=== PATIENT | male | born 1990 | race Caucasian/White ===

== ENCOUNTER 2016-11-17 12:23 | Emergency (ER) | payer BC, OTHER ==
[~2016-11-17] VITALS: Ht 170.2 cm; Wt 74.8 kg
[2016-11-17] MEDS ORDERED: IBUP200C PO (12:29)
[2016-11-17] MEDS ORDERED: CYCL10TA PO (13:40)
[2016-11-17 13:53] VITALS: BP 143/88
== END 2016-11-17 13:54 | disposition home or self-care (01) ==
LOC: M ED 13:30
DX: S39.012A Strain of muscle, fascia and tendon of lower back, initial encounter (principal); X50.0XXA Overexertion from strenuous movement or load, initial encounter; Y92.89 Other specified places as the place of occurrence of the external cause; Y93.B9 Activity, other involving muscle strengthening exercises; Y99.0 Civilian activity done for income or pay

== ENCOUNTER → 2018-08-27 | Outpatient (REF) | payer OTHER ==
[~2018-08-27] MED LIST: CYCL10TA PO; IBUP200C25 PO
[2018-08-27 19:54] LABS: INFLUENZA A AMPLIFICATION POSITIVE (NEGATIVE); INFLUENZA B AMPLIFICATION NEGATIVE (NEGATIVE)
== END ==
LOC: M LAB REF 10:22
PROVIDERS: ATTEND Physician Assistant
DX: J11.1 Influenza due to unidentified influenza virus with other respiratory manifestations (principal)

== ENCOUNTER 2018-12-13 16:40 | Emergency (ER) | payer OTHER, BC ==
[~2018-12-13] VITALS: Ht 172.7 cm; Wt 77.6 kg
[2018-12-13 19:32] VITALS: BP 138/78
== END 2018-12-13 19:43 | disposition home or self-care (01) ==
LOC: M ED 19:38
DX: S50.812A Abrasion of left forearm, initial encounter (principal); S13.4XXA Sprain of ligaments of cervical spine, initial encounter; V43.92XA Unspecified car occupant injured in collision with other type car in traffic accident, initial encounter; Y92.9 Unspecified place or not applicable; Y93.9 Activity, unspecified; Y99.9 Unspecified external cause status

== ENCOUNTER 2024-10-13 17:37 | Emergency (ER) | payer BC, OTHER ==
[~2024-10-13] VITALS: Ht 170.2 cm; Wt 80.4 kg
[~2024-10-13 17:37] MED LIST changes: +CYCL-707 PO; -CYCL10TA PO
[2024-10-13 17:55] VITALS: TEMP 98
[2024-10-13 18:06] LABS: BASO # 0.1 10^3/uL (0.0-0.2); BASO % 1.3 % (0.0-1.0); EOS # 0.2 10^3/uL (0.0-0.5); EOS % 3.8 % (0.0-3.0); HEMOGLOBIN 14.4 g/dl (13.5-17.5); LYMPH # 2.2 10^3/uL (1.5-5.0); LYMPH % 33.9 % (24.0-44.0); MEAN CORPUSCULAR HEMOGLOBIN 29.1 pg (27.0-33.0); MEAN CORPUSCULAR HGB CONC 32.7 g/dl (32.0-36.5); MEAN CORPUSCULAR VOLUME 89.1 fl (80.0-96.0); MONO # 0.4 10^3/uL (0.0-0.8); MONO % 6.6 % (2.0-8.0); NEUTROPHILS # 3.5 10^3/uL (1.5-8.5); NEUTROPHILS % 54.2 % (36.0-66.0); PLATELET COUNT, AUTOMATED 279 10^3/uL (150-450); RED BLOOD COUNT 4.94 10^6/uL (4.30-6.10); WHITE BLOOD COUNT 6.4 10^3/uL (4.0-10.0)
[2024-10-13 18:38] LABS: BLOOD UREA NITROGEN 10 MG/DL (9-23); CALCIUM LEVEL 8.8 MG/DL (8.5-10.1); CARBON DIOXIDE LEVEL 29 MMOL/L (20-31); CHLORIDE LEVEL 104 MMOL/L (98-107); CK-MB VALUE MASS < 1.0 NG/ML (<3.6); CPK CREATINE PHOSPHOKINASE 229 U/L (46-171); GLOMERULAR FILTRATION RATE 61.9 (>60); GLUCOSE, FASTING 99 MG/DL (60-100); MB/CK RELATIVE INDEX 0.43 (< OR =4); POTASSIUM SERUM 4.9 MMOL/L (3.5-5.1); SODIUM LEVEL 142 MMOL/L (136-145)
[2024-10-13 19:28] LABS: CK-MB VALUE MASS < 1.0 NG/ML (<3.6)
[2024-10-13 19:30] LABS: CPK CREATINE PHOSPHOKINASE 205 U/L (46-171); MB/CK RELATIVE INDEX 0.48 (< OR =4)
[2024-10-13] MEDS ORDERED: ISOVUE-370 76% 100ML VIAL As Ordered ONE (19:55)
[2024-10-13 21:15] VITALS: BP 132/67; O2SAT 98
== END 2024-10-13 21:58 | disposition home or self-care (01) ==
LOC: M ED 17:37
DX: R07.89 Other chest pain (principal); I45.10 Unspecified right bundle-branch block; F10.10 Alcohol abuse, uncomplicated
CPT/HCPCS: 36415; 70450; 71045; 71275; 80048; 82550; 82553; 84484; 85025; 93005; 93041; 94760; 99285; Q9967